=== PATIENT | female | born 1975 | race Caucasian/White ===

== ENCOUNTER 2017-05-03 21:09 | Emergency (ER) | payer BC, OTHER ==
[2017-05-03 23:33] LABS: APPEARANCE,URINE CLEAR; BILIRUBIN,URINE NEGATIVE (NEGATIVE); COLOR,URINE YELLOW; GLUCOSE, URINE NEGATIVE (NEGATIVE); KETONES,URINE NEGATIVE (NEGATIVE); LEUKOCYTE ESTERASE,URINE NEGATIVE (NEGATIVE); NITRITE,URINE NEGATIVE (NEGATIVE); PROTEIN,URINE NEGATIVE (NEGATIVE); URINE SPECIFIC GRAVITY 1.016; UROBILINOGEN,URINE NEGATIVE mg/dL (<2.0)
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
--- NOTE | 2017-05-04 01:30 | RADIOLOGY REPORT (SQ) ---
EXAM DESCRIPTION: U/S NON OB PEL TV W/DOPPLER CLINICAL HISTORY: 41 years Female, left sided pelvic pain COMPARISON: None. TECHNIQUE: Complete pelvic ultrasound with transvaginal and transabdominal imaging. Limited color spectral Doppler imaging of the ovaries. FINDINGS: Uterus measures 10.6 x 6.6 x 5.9 cm. Endometrial thickness of 0.9 cm. Cervical length of 3.5 cm. Nabothian cysts within the cervix. No myometrial abnormalities. The right ovary measures 2.4 x 2.2 x 2.0 cm. The left ovary measures 1.8 x 1.4 x 0.9 cm. No large adnexal masses identified. No free pelvic fluid visualized. IMPRESSION: 1. No sonographic abnormality identified in the pelvis.
[2017-05-04 02:10] VITALS: BP 112/75
== END 2017-05-04 02:17 | disposition home or self-care (01) ==
LOC: ER 21:09
DX: R10.2 Pelvic and perineal pain (principal); R10.31 Right lower quadrant pain; R11.0 Nausea; M25.511 Pain in right shoulder; G89.29 Other chronic pain; M54.9 Dorsalgia, unspecified
CPT/HCPCS: 76830; 81001; 81025; 93976; 99284